=== PATIENT | male | born 1995 | race African-American/Black ===

== ENCOUNTER 2022-05-25 22:25 | Emergency (ER) | payer SELFPAY ==
[2022-05-25 23:00] VITALS: BP 124/76; PULSE 100; RESP 20; BMI 26.4
[2022-05-25] MEDS ORDERED: LACTATED RINGERS SOLUTION 1000 ML INFUS.BAG IV ONE (23:06)
[2022-05-25] MEDS ORDERED: MECLIZINE HCL 25 MG TABLET (FP) PO ONE (23:07)
[2022-05-25] MEDS ORDERED: METOCLOPRAMIDE HCL INJECTION 10 MG/2 ML VIAL IVPUSH ONE (23:12)
[2022-05-25] MEDS ORDERED: MECLIZINE HCL 25 MG TABLET (FP) ONE (23:17)
[2022-05-25] MEDS ORDERED: METOCLOPRAMIDE HCL INJECTION 10 MG/2 ML VIAL ONE (23:18)
[2022-05-25 23:36] LABS: BASO % 0.5 % (0-2.0); EOS % 1.6 % (0-4.5); HEMATOCRIT 40.5 % (35.4-49); LYMPH % 13.7 % (8-40); MCH 30.1 pg (25.7-33.7); MCHC 34.6 g/dl (32.0-35.9); MEAN CELL VOLUME 86.9 fl (80-96); MEAN PLT VOLUME 7.4 fl (7.5-11.1); MONO % 10.3 % (3.8-10.2); NEUT % 73.9 % (42.8-82.8); PLATELET COUNT 282 10^3/uL (134-434); RBC 4.66 M/mm3 (4.00-5.60); RDW 12.3 % (11.9-15.9); WHITE BLOOD COUNT 10.5 K/mm3 (4.0-10.0)
[2022-05-25 23:56] LABS: CALCIUM 8.9 mg/dL (8.5-10.1)
[2022-05-25 23:57] LABS: ALBUMIN 4.1 g/dl (3.4-5.0); BLOOD UREA NITROGEN 12.4 mg/dL (7-18); MAGNESIUM 1.7 mg/dL (1.8-2.4)
[2022-05-26 00:01] LABS: TOT PROT 7.7 g/dl (6.4-8.2)
[2022-05-26 00:02] LABS: BILIRUBIN,TOTAL 0.5 mg/dL (0.2-1)
[2022-05-26] MEDS ORDERED: MAGNESIUM SULF 50% (8.12 MEQ/2 ML-1 GM VIAL) IVPB ONE (00:36)
[2022-05-26] MEDS ORDERED: MAGNESIUM 1GM/D5W - 1 GM/100 ML IVPB IVPB ONE (01:01)
== END 2022-05-26 02:08 | disposition home or self-care (01) ==
LOC: JER 22:25
PROC: 3E033GC Introduction of Other Therapeutic Substance into Peripheral Vein, Percutaneous Approach (ICD-10-PCS; principal; 2022-05-25)
PROC: 3E033GC Introduction of Other Therapeutic Substance into Peripheral Vein, Percutaneous Approach (ICD-10-PCS; 2022-05-25)
DX: R42 Dizziness and giddiness (principal)
CPT/HCPCS: 36415; 71045-TC-FY; 80053; 83735; 84443; 85025; 93005; 93010; 99285-25